=== PATIENT | male | born 1975 | race African-American/Black ===

== ENCOUNTER 2019-02-09 22:50 | Emergency (ER) | payer OTHER ==
[2019-02-09 23:06] VITALS: RESP 18
[2019-02-09] MEDS ORDERED: DEXAMETHASONE 4 MG TAB PO STA (23:28)
--- NOTE | 2019-02-09 23:30 | ED ---
General Adult HPI - General Chief complaint: ENT Stated complaint: Throat Pain Time Seen by Provider: 02/09/19 23:12 Source: patient Mode of arrival: ambulatory Limitations: no limitations - History of Present Illness Initial comments: Dictation was produced using [employer] dictation software. please excuse any grammatical, word or spelling errors. Chief Complaint: 43-year-old male with no significant past medical history presents with sore throat for one month. History of Present Illness: 43-year-old male he was told that one month ago he had the flu. He had sore throat proximal one month ago they said it was from the coughing. Patient decided come to the emergency department because he was worried about his insurance ending. Patient states that his pain is localized to his bilateral submandibular areas. States worse in the morning and better with for beverages. Patient has any respiratory distress or drooling or trouble swallowing. Decided come today because he is not sure. His insurance has he is worried he lost his insurance through his job. The ROS documented in this emergency department record has been reviewed and confirmed by me. Those systems with pertinent positive or negative responses have been documented in the HPI. All other systems are other negative and/or noncontributory. PHYSICAL EXAM: General Impression: Alert and oriented x3, not in acute distress HEENT: Normocephalic atraumatic, extra-ocular movements intact, pupils equal and reactive to light bilaterally, mucous membranes moist, non-erythematous oropharynx no cervical lymphadenopathy. Cardiovascular: Heart regular rate and rhythm, S1&S2 audible, no murmurs, rubs or gallops Chest: Lungs clear to auscultation bilaterally, no rhonchi, no wheeze, no rales Abdomen: Bowel sounds present, abdomen soft, non-tender, non-distended, no organomegaly Musculoskeletal: Pulses present and equal in all extremities, no peripheral edema Motor: no focal deficits noted Neurological: CN II-XII grossly intact, no focal motor or sensory deficits noted Skin: Intact with no visualized rashes Psych: Normal affect and mood ED course: 43-year-old male presents with chief complaint of sore throat. Patient is well-appearing. Patient's symptoms are chronic. No suspicion of respiratory or upper GI distress. Patient otherwise well-appearing. Physical examination is benign. Reassurance provided. Patient 1 mg pill of Decadron for symptom relief. 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 To take [id number] Motrin or Tylenol for symptoms. - Related Data Home Medications Medication Instructions Recorded Confirmed No Known Home Medications 02/09/19 02/09/19 Allergies Allergy/AdvReac Type Severity Reaction Status Date / Time No Known Allergies Allergy Verified 02/09/19 23:13 Review of Systems ROS Statement: Those systems with pertinent positive or pertinent negative responses have been documented in the HPI. ROS Other: All systems not noted in ROS Statement are negative. Past Medical History Past Medical History: No Reported History History of Any Multi-Drug Resistant Organisms: None Reported Past Surgical History: No Surgical Hx Reported Past Psychological History: No Psychological Hx Reported Smoking Status: Current every day smoker Past Alcohol Use History: Heavy Past Drug Use History: None Reported General Exam Limitations: no limitations Course Vital Signs 02/09/19 23:03 Temperature 98.5 F Pulse Rate 87 Respiratory 18 Rate Blood Pressure 151/96 O2 Sat by Pulse 97 Oximetry Disposition Clinical Impression: Pharyngitis Disposition: HOME SELF-CARE Condition: Good Instructions (If sedation given, give patient instructions): Pharyngitis (ED) Is patient prescribed a controlled substance at d/c from ED?: No Referrals: John Mitchell MD [STAFF PHYSICIAN] - 1-2 days Time of Disposition: 23:29
[2019-02-10 00:10] VITALS: BP 143/80; PULSE 83; TEMP 98
== END 2019-02-10 00:10 | disposition home or self-care (01) ==
LOC: EC 22:50
DX: J02.9 Acute pharyngitis, unspecified (principal); F17.200 Nicotine dependence, unspecified, uncomplicated
CPT/HCPCS: 99282; J8540